=== PATIENT | female | born 1955 | race Caucasian/White ===

== ENCOUNTER 2022-11-02 13:40 | Observation (INO) ==
[2022-11-02 14:08] LABS: ABS Eosinophils 0.1 10^3/uL (0.0-0.5); ABS Lymphocytes 2.6 10^3/uL (1.0-4.8); ABS Monocytes 0.5 10^3/uL (0.0-0.9); ABS Neutrophils 3.4 10^3/uL (1.5-7.6); ABS Nucleated RBC 0.01 10^3/ul; Eosinophil % 1.4 %; Hematocrit 38.6 % (35-45); Hemoglobin 13.4 g/dL (11.5-14.3); Lymphocyte % 39.3 %; Mean Corpuscular Hemoglobin 29.8 pg (27-33); Mean Corpuscular Hgb Conc 34.7 g/dL (31-36); Mean Corpuscular Volume 86.1 fL (80-97); Mean Platelet Volume 6.5 fL (7.5-11.2); Nucleated Red Blood Cells % 0.1 /100 WBC (0.0-0.4); Platelet Count 267 10^3/uL (150-450); Red Blood Count 4.49 10^6/uL (3.63-4.92); Red Cell Distribution Width 13.1 % (12-17); White Blood Count 6.7 10^3/uL (3.8-11.8)
[2022-11-02 14:23] LABS: INR 1.04 (0.83-1.13)
[2022-11-02 14:26] LABS: Albumin 4.8 g/dL (3.2-5.2); Albumin/Globulin Ratio 1.7 (1-3); Calcium 9.7 mg/dL (8.6-10.3); Creatinine, Serum 0.71 mg/dL (0.51-0.95); Globulin 2.8 g/dL (2-4); Potassium 3.6 mmol/L (3.5-5.0); Total Bilirubin 0.4 mg/dL (0.2-1.0); Total Protein 7.6 g/dL (6.4-8.9)
[2022-11-02] MEDS ORDERED: Lidocaine 1% VIAL 10 MG/ML 30 ML VIAL INJ ONE (15:33)
[2022-11-02 15:44] LABS: High Sensitivity Troponin 1 Hr 3 pg/mL (<15)
[2022-11-02] MEDS ORDERED: Bacitracin OINTMENT TUBE TOPICAL ONE (16:25)
[2022-11-02] MEDS ORDERED: Pancrelipase 36,000 units (NF) PO SCH (18:00)
[2022-11-02] MEDS ORDERED: Tetan/Diph/Pertus SYR(Tdap) 0.5 ML SYR(BOOSTRIX) use SYR contains LATEX IM ONE (18:20)
[2022-11-02] MEDS ORDERED: Iohexol 350 (CONTRAST) 500 ML MDV IV ONE (19:49)
[2022-11-02] MEDS ORDERED: Enoxaparin 40 MG/0.4 ML SYR SUBCUT SCH (20:00)
[2022-11-02] MEDS: PTO: Pancrelipase 36,000 units (NF) PO SCH (21:25)
[2022-11-03] MEDS ORDERED: Enoxaparin 40 MG/0.4 ML SYR SUBCUT SCH (08:00)
[2022-11-03] MEDS: PTO: Pancrelipase 36,000 units (NF) PO SCH ×2 (08:11→12:56)
[2022-11-03 20:15] VITALS: BP 108/56
== END 2022-11-03 13:43 | disposition home or self-care (01) ==
LOC: ED 13:40 → EDHOLD 13:40 → SUATTDRO 16:52 → MEDTELE 21:47
PROVIDERS: ADMIT Internal Medicine; ATTEND Internal Medicine